=== PATIENT | male | born 1995 | race Caucasian/White ===

== ENCOUNTER → 2024-07-07 | Outpatient (CLI) | payer OTHER, SELFPAY | END | disposition home or self-care (01) | PROVIDERS: PCP Family Medicine; Referring Provider Physician Assistant Surgical; Visit Provider Physician Assistant Surgical | DX: S81.809A Unspecified open wound, unspecified lower leg, initial encounter (principal) | CPT/HCPCS: 87070; 87077; 87186; 87205 ==

== ENCOUNTER 2024-11-17 08:08 | Emergency (ER) | payer OTHER, SELFPAY ==
[2024-11-17 08:09] VITALS: BP 144/91; PULSE 91; RESP 16; TEMP 36.3; O2SAT 100; BMI 31.1
--- NOTE | 2024-11-17 08:15 | ED.RN ---
Pt has [facility] Workers Aid so per employer goes through that instead of Workers Comp.
--- NOTE | 2024-11-17 08:35 | EDS_ITS ---
HPI History of Present Illness Chief Complaint: Laceration Narrative Narrative: Chief complaint and HPI: Left hand injury. 29-year-old [place] male who is vaccinated presents for evaluation of left hand injury. Patient states that prior to arrival he accidentally cut his left fourth and fifth finger on a metal bur. He states that his fingers were not crushed but that he did hit them. He endorses pain in the fingers. Tetanus 6 years ago. He denies any numbness or tingling. Review of systems: See HPI Medications: As listed on the chart Allergies: As listed on the chart PFSH: Per chart Vital signs: As listed on the chart. Reviewed. Physical exam: Gen: A&O x3, NAD Head: Normocephalic, atraumatic Eyes: No sclera icterus, conjunctiva clear ENT: Moist mucous membranes CV: Regular rate Resp: Nonlabored respiration Musc: Patient has full range of motion of the hand and fingers except for the fifth finger which will not flex but extend. Patient has tenderness to palpation of the fourth and fifth finger. He has lacerations to the proximal fourth and fifth fingers on the volar aspect. Good capillary refill. No active bleeding. Sensation intact. Radial/ulnar pulse +2. Hand nontender to palpation. Skin: Warm, dry Neuro: Alert, oriented, grossly intact, sensation intact Psych: Cooperative, appropriate mood and affect [facility] Medical History No active medical problems Home Medications ?Medication ?Instructions ?Recorded ?Last Taken ?Type acetaminophen 300 mg-codeine 30 mg 1 - 2 tab PO Q6H [place] N Pain ##20 05/03/15 Unknown Rx tablet doxycycline monohydrate 100 mg 100 mg PO BID #20 caps 07/10/24 Unknown Rx capsule cephalexin 500 mg capsule 500 mg PO BID 7 days #14 cap s 11/17/24 Unknown Rx Allergy/AdvReac Type Severity Reaction Status Date / Time diphenhydramine (From Allergy Unknown PT UNSURE Verified 11/17/24 08:12 Benadryl) OF REACTION Surgical History History of knee surgery (~2015) Social History Smoking Status: Never smoker alcohol intake: never substance use type: does not use EXAM Physical Exam Const Vital Signs: 11/17/24 08:09 11/17/24 11:42 Temperature 97.4 F L 98.5 F Temperature Source Oral Pulse Rate 91 89 Respiratory Rate 16 16 Blood Pressure 144/91 H 135/78 H Blood Pressure Mean 108 97 Pulse Ox 100 100 Oxygen Delivery Method Room Air MDM MDM MDM Narrative Medical decision making narrative: 29-year-old [facility] male who is vaccinated presents for evaluation of left hand injury. Injury is located to the fourth and fifth fingers. He has lacerations on the volar aspect of these fingers. Both fingers are tender to palpation diffusely. No tenderness to the hand or wrist. He has full range of motion of all of his fingers as well as his thumb except for the fifth finger as it will not flex. Concern is for flexor tendon injury. Will wait to block the patient's finger with lidocaine before exploration for tendon injury. X-ray of the hand ordered as this is less radiographic views if ordered two finger x- rays. Tetanus updated. Lacerations will need repaired. X-ray without fracture or dislocation. The x-ray was personally reviewed and interpreted by me, ED physician. Given concern for flexor tendon injury, plastic surgery Dr. Salgado was consulted and patient was discussed. He will come evaluate the patient. Plan is for me to digital block the fingers, clean out the wound, and he will further evaluate before repair. Patient tolerated digital block well. Wounds copiously cleaned and irrigated. Patient did have pinprick sensation distally to the injury prior to the block. Despite numbness from the block. Patient can still not flex his finger. Patient was evaluated by Dr. Salgado. He agrees with tendon injury. Plan will be for OR next week. Recommendations were dorsal splint and Keflex for a week. Lacerations were repaired. Dorsal splint was applied. Patient tolerated this well. Patient given prescription for Keflex. Patient educated that splint cannot get wet and needs to remain on at all times. Sutures need to come out in 7 days. Return precautions explained. Patient discharged home. Laceration Repair Indication: Laceration Location: 2 cm laceration and 2.5 cm laceration to the left fourth and fifth fingers Consent: Risks, benefits, and alternatives discussed with patient and consent obtained Procedure: A time out was performed. The area was prepped and draped in the usual sterile fashion. Local anesthesia was achieved using 1% Lidocaine without epinephrine. The wound was copiously irrigated and cleaned. 8 sutures were placed in the 2.5 cm laceration and 5 stitches placed in the a 2 cm laceration using 4-0 Ethilon in an interrupted fashion. The estimated blood loss was minimal. A dressing was applied to the area with Bacitracin. The patient tolerated the procedure well without complications. Foreign Material: None Debridement: None Splint application Indication: Fifth finger flexor tendon tear Consent: Risks, benefits, and alternatives discussed with patient and consent obtained Procedure: A dorsal hand splint was applied to the left upper extremity to keep the fingers in flexion. Splint was made using sleeve, web roll, Ortho-Glass, and Alberto bandage. The extremity's neurovascular status was re-checked and was unchanged from the pre-procedure exam. The patient tolerated the procedure without complications. Impression: 1. Flexor tendon tear of left fifth finger 2. Laceration to the left fifth finger, repaired 3. Laceration to the left fourth finger, repaired 4. Dorsal splint placement Radiography Diagnostic Testing: Clinical Impression(s) from Imaging Studies Hand X-Ray 11/17/24 08:40 IMPRESSION: 1. Soft tissue swelling without acute fracture. 2. If symptoms persist, further evaluation with CT is recommended. Reading Location: [facility] Discharge Plan Triage Chief Complaint: Laceration ED Provider: Anirudh Tamayo Dx/Rx/DC Orders Clinical Impression: Laceration of finger of left hand, Injury of flexor tendon of left hand Instructions: ED Laceration, All Closures, ED Splints and Casts Prescriptions: New cephalexin 500 mg capsule 500 mg PO BID 7 Days Qty: 14 0RF No Action acetaminophen-codeine 1 TABLET tablet 1 - 2 tab PO Q6H PRN (Reason: Pain) Qty: 20 0RF Rx Instructions: causes drowsiness doxycycline monohydrate 100 mg capsule 100 mg PO BID Qty: 20 0RF Primary Care Provider: Care Physician,No Primary Referrals: Ajay Matamoros MD [Non-Staff] - James Salgado MD [Med Staff - Active Staff] - 3-5 Days Activity Restrictions/Additional Instructions: Follow-up with Dr. Salgado. Take all of your antibiotics. Sutures need to be removed in 7 days. Splint needs to remain on at all times. Cannot get wet. Take your antibiotics. Motrin and Tylenol as needed for pain. Print Language: Khmer Disposition Disposition: Home, Self Care Discharge Date/Time: 11/17/24 11:43
[2024-11-17] MEDS: Diphth,Pertuss(Acell),Tet Vac 0.5 ML Vial IM (08:36)
--- NOTE | 2024-11-17 08:40 | RAD_ITS ---
EXAM: XR Left Hand Complete, 3 or More Views CLINICAL INDICATION: INJURY TECHNIQUE: Frontal, lateral and oblique views of the left hand. COMPARISON: No relevant prior studies available. FINDINGS: BONES/JOINTS: See below. SOFT TISSUES: Soft tissue swelling without acute fracture. No radiopaque foreign body. RAD/Hand Min 3 Views IMPRESSION: 1. Soft tissue swelling without acute fracture. 2. If symptoms persist, further evaluation with CT is recommended. Reading [facility]
--- NOTE | 2024-11-17 10:07 | EX.PCM.CON.S ---
Assessment & Plan Assessment/Plan (1) Flexor tendon laceration, finger, open wound: QUALIFIERS: Encounter type: initial encounter Qualified Code(s): S56.129A - Laceration of flexor muscle, fascia and tendon of unspecified finger at forearm level, initial encounter; S61.209A - Unspecified open wound of unspecified finger without damage to nail, initial encounter PLAN: Flexor digitorum profundus complete laceration zone 2, left small finger at the level the PIP joint. I talked the patient extensively about the risks of surgery, including bleeding, infection, damage to surrounding structures, surgical site dehiscence and wound formation, failure of the repair, poor tendon gliding/poor flexion at the DIP joint, need for wound care, need for repeat operations, failure to obtain the desired result, DVT/PE, and the risks of anesthesia including , including stroke (from low blood pressure/ischemia or clot). The benefits and alternatives of this surgery were also discussed. All of their questions were answered, and they agreed to proceed with surgery. I talked to him extensively about the need for postoperative hand therapy and following the hand therapy protocol which means no heavy lifting for over 3 months. He was in agreement to proceed. I talked him about smoking cessation a lot and how this will affect wound healing and tendon gliding. He agreed to try to quit. Patient's wound was washed out and closed by the emergency department staff please see their separate operative note. Patient placed in a dorsal blocking splint with fingers in slight flexion. Follow-up for surgery early next week for repair of FDP to the small finger. HPI Consult Data Date of Consult: 11/17/24 HPI Narrative HPI Narrative: SHELDON MILLER is a 29 M who presents with left small and ring finger lacerations after he cut his volar fingers on a piece of metal while at work this morning. He reports sharp severe pain in the left upper extremity worsened by movements and improved with rest elevation. The emergency department staff consulted plastics out of concern for a flexor tendon injury to the small finger. Patient is a 10 cigarette/day smoker. He does not have a history of bleeding or clotting problems, or any family history of these issues. 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) Patient has never hurt this hand before or had any surgery on this hand His tetanus was updated today in the emergency department [facility] Medical History No active medical problems Home Medications ?Medication ?Instructions ?Recorded ?Last Taken ?Type acetaminophen 300 mg-codeine 30 mg 1 - 2 tab PO Q6H PRN Pain ##20 05/03/15 Unknown Rx tablet doxycycline monohydrate 100 mg 100 mg PO BID #20 caps 07/10/24 Unknown Rx capsule cephalexin 500 mg capsule 500 mg PO BID 7 days #14 caps 11/17/24 Unknown Rx Allergy/AdvReac Type Severity Reaction Status Date / Time diphenhydramine (From Allergy Unknown PT UNSURE Verified 11/17/24 08:12 Benadryl) OF REACTION Surgical History History of knee surgery (~2015) Social History Smoking Status: Never smoker alcohol intake: never substance use type: does not use Physical Exam Narrative Left upper Extremity Inspection: Oblique lacerations to the volar surface of the ring and small fingers at the level of the proximal interphalangeal (PIP) joints. Palpation: Deferred Motor: Able to bend and extend all MP, PIP, and DIP joints except he is unable to bend the distal interphalangeal joint (DIP) of the left small finger consistent with an flexor digitorum profundus (FDP) injury. FDS to the small finger is intact. Sensory: Intact to light touch on the radial and ulnar borders. He has intact pinprick sensation distal to the zone of injury on the radial and ulnar borders of the ring and small fingers Vascular: Finger tips are warm and well perfused with <2 second capillary refill. Doppler ultrasound was used to assess the perfusion of the digits distal to the zone of injury and he had triphasic signal on both the ring and small finger. Imaging Radiology Impression Hand X-Ray 11/17/24 08:40 IMPRESSION: 1. Soft tissue swelling without acute fracture. 2. If symptoms persist, further evaluation with CT is recommended. Reading [facility] Charges/Coding Visit Charges Office Visits / Consults: [id number] OV L4 New 45min
[2024-11-17] MEDS: Lidocaine 1% (20 ml mdv) 20 ML Vial INFILT (11:41)
[2024-11-17 11:42] VITALS: BP 135/78; PULSE 89; RESP 16; TEMP 36.9; O2SAT 100
== END 2024-11-17 11:43 | disposition home or self-care (01) ==
PROVIDERS: Emergency Provider Surgery; Visit Provider Surgery
DX: S61.215A Laceration without foreign body of left ring finger without damage to nail, initial encounter (principal); S66.117A Strain of flexor muscle, fascia and tendon of left little finger at wrist and hand level, initial encounter; S61.217A Laceration without foreign body of left little finger without damage to nail, initial encounter; W31.89XA Contact with other specified machinery, initial encounter; Z23 Encounter for immunization; F17.210 Nicotine dependence, cigarettes, uncomplicated
CPT/HCPCS: 12002; 29125; 73130; 90715; 99283

== ENCOUNTER 2024-11-21 06:02 | Day surgery (SDC) | payer OTHER, SELFPAY ==
[2024-11-21] VITALS (9 sets, daily range): BP systolic 116–127; BP diastolic 68–82; PULSE 90–104; RESP 14–18; TEMP 36.1–36.9; O2SAT 94–98; BMI 32.1
[2024-11-21] MEDS: 0.9% Normal Saline (1000mL) 1,000 ML 15 ML IV (06:31)
--- NOTE | 2024-11-21 06:54 | PRE.ANES_ITS ---
ASA Classification* ASA Classification ASA Classification: 2 Assessment & Plan Anesthesia* Anesthesia Assessment Anesthesia Assessment: Discussed sedation and/or anesthesia options, risks, benefits, and alternatives with patient/parents/legal guardian/POA. Questions invited. The patient/parents/legal guardian/POA seems to understand and agrees to proceed with anesthesia plan. Reviewed the physical assessment, medical history, allergy history and patient home medications list prior to surgery/procedure/anesthetic and documented any changes. Performed airway and anesthesia risk assessments. Anesthesia Type Anesthesia Type: General (LMA -- seems like it'll be a few hours long case) History Source History Obtained from:: Patient and Chart Anesthesia Focused Assessment* Temperature: 98.4 F Pulse Rate: 96 Blood Pressure: 127/82 Respiratory Rate: 14 Pulse Ox: 94 Oxygen Delivery Method: Room Air Airway Assessment Mouth opens: >3 cm Mallampati Score: II Teeth Condition: Dentures, Full, Lower and Upper Neck Range of motion (ROM): Full ROM Focused Labs Anesthesia Preop lab: CBC CHEMISTRY COAG Pre-Assessment Diagnosis/Proposed Procedure Planned Operative Procedure(s): LEFT HAND SMALL FINGER LACERATION FLEXOR TENDON REPAIR Anesthesia History Anesthesia History - research neuropsychologist: Anesthesia History - research neuropsychologist Hx Hospitalization No 11/20/24 09:57 Any Problems With Anesthesia No 11/20/24 09:57 Cholinesterase deficiency No 11/20/24 09:57 You/Your Family Experience No 11/20/24 09:57 fever (hyperthermia) with Relationship Recent Exposure to Contagious No 11/21/24 06:25 Disease Does patient have nerve No 11/20/24 09:57 stimulator Patient instructed to have device shut off --Does patient have Pacemaker or ICD? When Was Last Pacemaker Check QUESTION #4 FULL TEXT: You/Your Family Experience fever (hyperthermia) with Anesthesia Last Oral Intake Last Oral intake: Last Oral Intake NPO since 00:00 11/21/24 06:27 Meds taken in AM with sips of No 11/21/24 06:27 water? Meds patient instructed to take am of surgery PONV PONV - research neuropsychologist: PONV - research neuropsychologist Female No 11/20/24 09:57 HX of Motion Sickness No 11/20/24 09:57 HX of N/V After Surgery No 11/20/24 09:57 Non-Smoker No 11/20/24 09:57 Duration of Surgery greater No 11/20/24 09:57 than 60 minutes Number of Risk Factors PONV Score Height & Weight Height & Weight: Anesthesia: Height & Weight Height 5 ft 8 in 11/21/24 06:27 Weight: 95.9 kg 11/21/24 06:27 Body Mass Index (BMI) 32.1 11/21/24 06:27 Respiratory Assessment Respiratory Assessment - research neuropsychologist: Respiratory Tract Infection Hx - research neuropsychologist Hx Respiratory Tract Infection No 11/20/24 09:57 STOP Sleep Apnea STOP Sleep Apnea - research neuropsychologist: STOP Sleep Apnea - research neuropsychologist Hx Hypertension No 11/20/24 09:57 Hx Sleep Apnea No 11/20/24 09:57 CPAP BIPAP Do you snore loudly (louder Yes 11/20/24 09:57 than talking or can be heard Do you often feel tired/ No 11/20/24 09:57 fatigued/ sleepy during daytime? Has anyone observed you stop No 11/20/24 09:57 breathing during sleep? STOP Results Negative 11/20/24 09:57 QUESTION #5 FULL TEXT : Do you snore loudly (louder than talking or can be heard through closed doors)? 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 Specify any problems Hx of Preganancy in last 3 N/A 11/20/24 09:57 Months Nurse Filling Out Transfusion JZOLLINGE 11/20/24 09:57 & Questions: Date: 11/20/24 11/20/24 09:57 Time: 10:03 11/20/24 09:57 Patient unable to answer at this time (ie. confused, unrespo /Reproduction History /Reproductive History - research neuropsychologist: /Reproductive Hx- research neuropsychologist Hx Now No 11/20/24 09:57 Gestational Age (in weeks): EDC: Hx Hx Para Hx Section SAB No 11/20/24 09:57 Active Medications Active Medications: Current Medications Generic Name Dose Route Start Last Admin Trade Name Freq PRN Reason Stop Dose Admin Cefazolin Sodium 2 gm/ N/A 20 mls @ 400 mls/hr 11/21/24 07:30 IV 11/21/24 07:32 PREOP ONE Sodium Chloride 1,000 mls @ 15 mls/hr 11/21/24 06:10 11/21/24 06:31 IV 11/26/24 19:29 15 mls/hr .Q48H KOBI Administration PFSH Medical History (Updated 11/20/24 @ 10:10 by Jenn Munoz) Wears dentures Smoker No active medical problems Home Medications ?Medication ?Instructions ?Recorded ?Last Taken ?Type cephalexin 500 mg capsule 500 mg PO BID 7 days #14 cap s 11/17/24 11/20/24 Rx Allergy/AdvReac Type Severity Reaction Status Date / Time diphenhydramine (From Allergy Unknown PT UNSURE Verified 11/20/24 09:53 Benadryl) OF REACTION Surgical History (Updated 11/20/24 @ 10:10 by Jenn Munoz) Hx of adenoidectomy Hx of tonsillectomy History of knee surgery (~2015) Social History Smoking Status: Current every day smoker tobacco type: cigarettes alcohol intake: never substance use type: does not use Review of Systems (Anesthesia) ROS Narrative System reviewed and no additional complaints, except as documented. Physical Exam Const alert, oriented x3 and average body habitus Resp normal respiratory effort, normal air movement and clear to auscultation b ilaterally Cardio regular rate, regular rhythm, no murmurs and diaphoretic
--- NOTE | 2024-11-21 07:27 | PCM.HP.STD ---
HPI - General HPI Narrative SHELDON MILLER is a 29 M who presents with left small and ring finger lacerations after he cut his volar fingers on a piece of metal while at work this morning. He reports sharp severe pain in the left upper extremity worsened by movements and improved with rest elevation. The emergency department staff consulted plastics out of concern for a flexor tendon injury to the small finger. Patient is a 10 cigarette/day smoker. He does not have a history of bleeding or clotting problems, or any family history of these issues. 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 We discussed risks and benefits of today's surgery and they would like to proceed. NO CHANGE in health history since last seen and evaluated EXCEPT HE'S REPORTING SOME NUMBNESS ON THE ULNAR SIDE OF THE SMALL FINGER DISTAL TO THE ZONE OF INJURY . Ready to proceed with surgery. [facility] Medical History (Updated 11/21/24 @ 07:[address] James Salgado MD) Wears dentures Smoker No active medical problems Home Medications ?Medication ?Instructions ?Recorded ?Last Taken ?Type cephalexin 500 mg capsule 500 mg PO BID 7 days #14 caps 11/17/24 11/20/24 Rx Allergy/AdvReac Type Severity Reaction Status Date / Time diphenhydramine (From Allergy Unknown PT UNSURE Verified 11/20/24 09:53 Benadryl) OF REACTION Surgical History (Updated 11/20/24 @ 10:10 by Jenn Munoz) Hx of adenoidectomy Hx of tonsillectomy History of knee surgery (~2015) Social History Smoking Status: Current every day smoker tobacco type: cigarettes alcohol intake: never substance use type: does not use Vital Signs Vital Signs Vital Signs: 11/21/24 06:25 11/21/24 06:27 11/21/24 07:00 Temperature 98.4 F 98.4 F Temperature Source Temporal Pulse Rate 96 96 Respiratory Rate 14 14 Respiratory Pattern Normal Blood Pressure 127/82 H 127/82 H Blood Pressure Mean 97 Blood Pressure Source Monitor Blood Pressure Position Semi-Fowlers Blood Pressure Location Right Arm Pulse Ox 94 94 Oxygen Delivery Method Room Air Room Air Weight Weight: 211 lb 6.773 oz Body Mass Index (BMI) 32.1 Physical Exam Narrative Left upper Extremity Inspection: Oblique lacerations to the volar surface of the ring and small fingers at the level of the proximal interphalangeal (PIP) joints. Palpation: Deferred Motor: Able to bend and extend all MP, PIP, and DIP joints except he is unable to bend the distal interphalangeal joint (DIP) of the left small finger consistent with an flexor digitorum profundus (FDP) injury. FDS to the small finger is intact. Sensory: Intact to light touch on the radial and ulnar borders except he has no 2-point discrimination on the ulnar border of the small finger distal to the laceration, and 2 mm 2-point on the contralateral finger ulnar side and on the ipsilateral radial side. Vascular: Finger tips are warm and well perfused with <2 second capillary refill. Doppler ultrasound was used to assess the perfusion of the digits distal to the zone of injury and he had triphasic signal on both the ring and small finger. Assessment & Plan Assessment/Plan (1) Flexor tendon laceration, finger, open wound: QUALIFIERS: Encounter type: initial encounter Qualified Code(s): S56.129A - Laceration of flexor muscle, fascia and tendon of unspecified finger at forearm level, initial encounter; S61.209A - Unspecified open wound of unspecified finger without damage to nail, initial encounter PLAN: Flexor digitorum profundus complete laceration zone 2, left small finger at the level the PIP joint. I talked the patient extensively about the risks of surgery, including bleeding, infection, damage to surrounding structures, surgical site dehiscence and wound formation, failure of the repair, poor tendon gliding/poor flexion at the DIP joint, need for wound care, need for repeat operations, failure to obtain the desired result, DVT/PE, and the risks of anesthesia including , including stroke (from low blood pressure/ischemia or clot). The benefits and alternatives of this surgery were also discussed. All of their questions were answered, and they agreed to proceed with surgery. I talked to him extensively about the need for postoperative hand therapy and following the hand therapy protocol which means no heavy lifting for over 3 months. He was in agreement to proceed. I talked him about smoking cessation a lot and how this will affect wound healing and tendon gliding. He agreed to try to quit. Patient's wound was washed out and closed by the emergency department staff please see their separate operative note. Patient placed in a dorsal blocking splint with fingers in slight flexion. Follow-up for surgery early next week for repair of FDP to the small finger. INTERVAL H&P PLAN, DATE OF SURGERY: We will proceed with surgery today. I re-iterated the above noted risks, benefits, and alternatives to today's procedure. I also talked to him about digital nerve repair and neuromas, nerve pain. He would like to proceed with possible digital nerve repair as well. (2) Digital nerve laceration, finger:
[2024-11-21] MEDS: Cefazolin 2 GM in Syringe IV (07:45)
[2024-11-21] MEDS: Bupivacaine 0.25% 30 ML Vial (09:57)
--- NOTE | 2024-11-21 10:20 | PCM.POST.ANE ---
Anesthesia: Postop Eval I Current Vital Signs Temperature: 97.4 F Pulse Rate: 93 Blood Pressure: 124/73 Respiratory Rate: 14 Pulse Ox: 98 Oxygen Delivery Method: Simple Mask Assessment Airway patent: Yes Spontaneous unlabored respirations: Yes nausea: No Vomiting: No Anesthesia Complication: No Fluid Hydration Crystalloid volume administer (ml): 1,500 Total IV fluid infused: 1,500 Progress Note Anesthesia document: Postop Eval 1 completed: Yes
--- NOTE | 2024-11-21 11:10 | POSTOPAN2_ITS ---
Anesthesia Postop Eval I Sum Postop Eval Completion status Anesthesia document: Postop Eval 1 completed: Yes Anesthesia Postop Eval I Summary Anesthesia Postop Eval I Summary: Anesthesia Postop Eval I: Assessment Summary Airway patent Yes 11/21/24 10:21 SOFT DRINK POWDER [email or web address] Spontaneous unlabored Yes 11/21/24 10:21 SOFT DRINK POWDER [email or web address] respirations Mental status nausea No 11/21/24 10:21 SOFT DRINK POWDER [email or web address].HBARR Vomiting No 11/21/24 10:21 SOFT DRINK POWDER [email or web address] Anesthesia Postop Eval I: Fluid Summary Crystalloid volume administer 1,500 11/21/24 10:21 SOFT DRINK POWDER [email or web address] (ml) Colloids volume administered ( ml) Blood Product volume administered (ml) Total IV fluid infused 1,500 11/21/24 10:21 SOFT DRINK POWDER [email or web address].[email or web address] Anesthesia Postop Eval I: Summary Notes Anesthesia Complication No 11/21/24 10:21 SOFT DRINK POWDER [email or web address].[email or web address] Anesthesia Complication Comment: Post-operative progress note Anesthesia: Postop Eval II Evaluation Mental status: Awake Pain Level: 0 nausea: No Vomiting: No Complications Anesthesia Complication: No
--- NOTE | 2024-11-21 11:10 | PCM.POSTANE2 ---
Anesthesia Postop Eval I Sum Postop Eval Completion status Anesthesia document: Postop Eval 1 completed: Yes Anesthesia Postop Eval I Summary Anesthesia Postop Eval I Summary: Anesthesia Postop Eval I: Assessment Summary Airway patent Yes 11/21/24 10:21 [email or web address] [email or web address] Spontaneous unlabored Yes 11/21/24 10:21 ISSUING [email or web address].[email or web address] respirations Mental status nausea No 11/21/24 10:21 ISSUING [email or web address] Vomiting No 11/21/24 10:21 ISSUING [email or web address] Anesthesia Postop Eval I: Fluid Summary Crystalloid volume administer 1,500 11/21/24 10:21 ISSUING [email or web address] (ml) Colloids volume administered ( ml) Blood Product volume administered (ml) Total IV fluid infused 1,500 11/21/24 10:21 ISSUING [email or web address] Anesthesia Postop Eval I: Summary Notes Anesthesia Complication No 11/21/24 10:21 ISSUING [email or web address].[email or web address] Anesthesia Complication Comment: Post-operative progress note Anesthesia: Postop Eval II Evaluation Mental status: Awake Pain Level: 0 nausea: No Vomiting: No Complications Anesthesia Complication: No
--- NOTE | 2024-11-21 21:21 | PCM.OPRPT ---
Operative Report (Standard) Operative Information Date of Procedure: 11/21/24 Pre-Operative Diagnosis: 1) Left small finger ulnar digital nerve laceration 2) Left small finger zone 2 flexor digitorum profundus tendon (FDP) laceration Post-Operative Diagnosis: Same Surgery/Procedure Performed: 1) Left small finger ulnar digital nerve laceration repair (CPT 09088) 2) Left small finger zone 2 flexor digitorum profundus tendon (FDP) laceration repair (CPT 18486) scratch brusher: Yes Wholesale Account Executive: Indigo Gross Tasks completed by workforce development assistant: Retracting Type of Anesthesia: General/Supplemental (6 cc of 0.25% Marcaine for digital block at the completion of the case ) RN Documented Start/Stop Times: Operation Date: 11/21/24 07:30 Case Time Into Pre-Op 11/21/24 06:09 Out of Pre-Op 11/21/24 07:32 Anesthesia Start 11/21/24 07:37 Into Room 11/21/24 07:37 Procedure Start 11/21/24 08:03 Procedure End 11/21/24 10:04 Anesthesia End 11/21/24 10:14 Out of Room 11/21/24 10:14 Into Recovery 11/21/24 10:17 Into Phase II Recovery 11/21/24 10:49 Out of Recovery 11/21/24 10:49 Out of Phase II 11/21/24 11:38 Procedure Start Time: 08:03 Procedure Stop Time: 10:04 Select all DRAINS/GRAFTS/IMPLANTS that apply: Graft (Nerve protector ) Graft details: Axogaurd nerve connector, Ref [id number], Lot [id number], D 3mm, L 15mm, Exp 10 February 2026 Estimated Blood Loss: 10 cc Specimen collected: No Description of surgery: Indications: Jose Alberto Watson is a 29-year-old male who cut his hand on metal while at work on , 16 November 2024. Presents today for repair of flexor digitorum profundus to the small finger as well as the ulnar digital nerve of the small finger. I talked him about the risks, benefits, and alternatives to surgery and he elected to proceed. Procedure details: Patient was correctly identified in preoperative holding and taken back to the operating room he was administered general anesthesia. He was prepped and draped in sterile fashion and a proper timeout was performed. An Esmarch was used with a tourniquet on the left arm and it was inflated to 250 mmHg. The sutures were removed from the emergency department closure of the small finger wound. We began the procedure with careful dissection with 15 blade scalpel, incorporating the transverse laceration into a distal radial mid axial incision and a proximal ulnar mid axial incision. Care was taken to preserve the unaffected radial digital neurovascular bundle. We were able to identify the cut ends of the ulnar digital nerve. We were also able to identify that the A3 jericho had been lacerated and the ulnar slip of the FDS was cut. The radial slip of FDS was intact. There was no identifiable proximal stump of the FDP, but the distal stump of the FDP was identified by flexing the finger at the DIP joint. Further proximal dissection on top of the A2 jericho did not demonstrate the proximal stump of the FDP. Therefore the mid axial incision over the ulnar side of the small finger P1 was converted into a Natasha incision over the A1 jericho region. Dissection was carefully taken down to the tendons with care to preserve the digital nerve and artery. The proximal stump of the FDP was identified and threaded back through the jericho system proximally at this level to the level where the FDP had been transected. A Trenton needle was used to keep it in position. The A4 jericho was vented slightly in the proximal portion so as to enable the tendon repair. The FDP cut ends were then repaired with a 4-0 Arthrex looped FiberWire suture for a Tsuge-Gregory style repair. A 5-0 Prolene epitendinous suture was then placed. We were happy with the cascade of the fingers and there was no tendon gapping. Attention was then turned to the digital nerve repair. The microscope was brought into the room and focused on the digital nerves. With assistance of the microscope for the repair, the cut and frayed ends of the nerve were freshened slightly with a straight micro scissors. The epineurium between the 2 nerve ends was then repaired without any tension using 3 interrupted 9-0 nylon sutures. The repair was then reinforced with a nerve connector nerve wrap which was sutured into place with a 9-0 nylon suture. It was trimmed to fit around the nerve and further reinforced with small microvascular clips. The wound was then irrigated with copious amounts of normal saline and the tourniquet was let down. Hemostasis obtained with bipolar electrocautery. The finger was warm and well-perfused distal to the zone of injury. Closure was then performed with interrupted 3-0 nylon suture. The patient tolerated the procedure well. He was placed in a dorsal blocking plaster splint with the fingers in slight flexion. He was awakened and taken to the PACU in stable condition. Postoperative plan: I discussed with him extensively smoking cessation and the effects of smoking on wound healing and tendon gliding. I talked to him about the need for hand therapy. He will keep his splint in place and dry until his appointment with our hand therapist in 3 days on Wednesday, 24 November 2024, at which time he will begin the modified [facility] hand therapy protocol. Surgical Findings: Transected ulnar digital nerve to the small finger at about the level of the PIP joint Intact radial slip of flexor digitorum superficialis (FDS), transected radial slip (was not repaired) Complications Complications: No Admit VTE Documentation VTE Mechan Device Prophylaxis: SCD's
== END 2024-11-21 11:39 | disposition home or self-care (01) ==
LOC: SDC 06:04 → AC 06:05
PROVIDERS: Referring Provider Surgery Plastic and Reconstructive Surgery; Visit Provider Surgery Plastic and Reconstructive Surgery
PROC: (CPT 26370; principal; 2024-11-21 07:15)
DX: S66.125A Laceration of flexor muscle, fascia and tendon of left ring finger at wrist and hand level, initial encounter (principal); S64.495A Injury of digital nerve of left ring finger, initial encounter; W26.8XXA Contact with other sharp object(s), not elsewhere classified, initial encounter; Y99.0 Civilian activity done for income or pay; F17.210 Nicotine dependence, cigarettes, uncomplicated
CPT/HCPCS: 26370; 64831; C1763; J2405

== ENCOUNTER 2025-01-23 15:00 | Outpatient (RCR) | payer SELFPAY, OTHER ==
--- NOTE | 2024-11-24 09:58 | HP.OTEVAL ---
Patient's Visit Information Visit Information Visit Information: SHELDON MILLER is a 29 year old M, referred to Occupational Therapy by Dr. James Salgado MD, with a diagnosis of Left SF FDP laceration, Ulnar digital nerve laceration. Date of Evaluation: 11/24/24 Occupational Therapist: Ibis Truong, SOLOMON/Jeff, CHT Subjective Subjective: This 29 year old male was seen for OT eval with dx of left SF laceration. pt states while at work he cut his finger on metal ( November 16 2024) underwent sx 11/21/24 Pt suffered from a zone 2 flexor tendon laceration of left SF. undergoing FDP repair and left Ulnar digital nerve repair. pt is right handed- has and small children- can help as needed. pt arrives to day with surgical splint on in need of custom orthosis.. ROM ROM Comments: pt demo with left wrist ROM WNL- therapist left thumb and IF out of Dorsal blocking orthosis- SF demo Passive MP of 0/60* PIP -5/40* DIP 0/15* Edema Other: slight in LF /temp. consistent with other fingers on left Quick DASH-Disab of Arm,Shoulder& Hand Quick DASH Score: 71.6650 Goals Goal:100% adherence to protocol: Yes Comment: zone 2 FDP repair guidelines Goal:Daily scar massage when approriate: Yes Goal:ROM equal to unaffected hand: Yes Goal:Stock Tracer/Pinch strength at least 75% of unaffected hand: Yes Comment: will not initiate until week 6 Goal:No pain with affected hand use: Yes Goal:Full use of affected hand in daily activities including work: Yes Goal:Decrease scar hypersensitivity: Yes Other Goal: orthosis use: pt will demo understanding of using orthosis at all times as a protector to prevent wrist and digit ext. to allow the tendon to heal by end of 1st session. Rehabilitation General Assessment: Pt arrives 3 days s/p for a FDP repair and ulnar digital nerve repair. Pt demo need for skilled OT services 2xwee for 6-8 weeks to return pt to his PLOF. Today therapist removed pts dressing- ( incision looked great dry and min signs of seeping) slight swelling- therapist did take some time and washed pts hand with warm soapy water. pt did get little nauseated initially) therapist was able to proceed with akua. custom dorsal blocking orthosis placing left wrist is slight ext 30* - MPs at 50* and PIPs at 0. therapist reviewed with pt passive ROM of MP, PIP and DIP with active ext within the splint. (pt was given handouts) instructed to perform every 2 hours 10-15 x without pain. pt demo understanding and agree to POC. Rehabilitation Potential: Good Anticipated Interventions Anticipated Interventions: Early Active Motion, A/AAROM/PROM, Strengthening, Edema Control, Scar Care, Triggerpoint Release, Desensitization, Sensory Retraining, Wound Care, Modalities, Orthoses, Joint Protection/Energy Conservation, Ergonomic Education, Fine Motor Coord/Favian, ADL Training, Education re assistive Equipment, Education re Diagnosis and Home Program Visit Plan Frequency: 2-3x /Week Duration: 2-4 Months TEXT: Thank you for the opportunity to evaluate your patient. For Medicare and Medicare HMO plans, please review the plan of care and approve it. It will need to be FAXED BACK to us at [phone] for Medicare purposes. Please let me know if there are questions or concerns regarding this plan of care. Physician Signature: Date:
--- NOTE | 2025-01-19 09:21 | HP.OTREVAL ---
Re-Evaluation Intro: Dr. James Salgado MD, It has been my pleasure to treat SHELDON MILLER over the last 16 visits for Left SF FDP laceration, Ulnar digital nerve laceration. Please see the progress note below for an update on the occupational therapy plan of care! Subjective Subjective: pt states he has been passively working his finger and has noticed improved motion- pt states hand does not limit him at this time. Objective Objective/Function: left PIP -25/70 DIP still not moving well -5/20 - still feel FDP movement. and no change in the ROM following services pt scar adhesions have limited progress at this time pt to cont with functional use of left UE as emre. as strengthening will and use will improve motion Plan Plan Visits in this POC: pt to return to Dr. Plan: ROM Place and hold PROM scar Goals Goals Patient Goals: Regain Mobility, Use Hand/Wrist/Arm Normally Again and Resume Former Household Responsibilities (Cooking,Cleaning,Yard, etc.) Goal:100% adherence to protocol: Yes Goal:Daily scar massage when approriate: Yes Goal:ROM equal to unaffected hand: Yes Goal:Manager Mental Health/Pinch strength at least 75% of unaffected hand: Yes Goal:No pain with affected hand use: Yes Goal:Full use of affected hand in daily activities including work: Yes Goal:Decrease scar hypersensitivity: Yes Other Goal: orthosis use: pt will demo understanding of using orthosis at all times as a protector to prevent wrist and digit ext. to allow the tendon to heal by end of 1st session. Anticipated Interventions Anticipated Interventions Anticipated Interventions: Early Active Motion, A/AAROM/PROM, Strengthening, Edema Control, Scar Care, Triggerpoint Release, Desensitization, Sensory Retraining, Wound Care, Modalities, Orthoses, Joint Protection/Energy Conservation, Ergonomic Education, Fine Motor Coord/Favian, ADL Training, Education re assistive Equipment, Education re Diagnosis and Home Program Re-Evaluation Ending Re-evaluation ending: Please do not hesitate to contact me at [phone] by phone or if you have questions or concerns regarding this new plan of care! Sincerely, Ibis Truong, ZIYADR/L, CHT
--- NOTE | 2025-01-23 15:13 | HP.OTDCSUM ---
Discharge Summary D/C Summary: It has been my pleasure to treat SHELDON MILLER under orders from Dr. James Salgado MD, for the diagnosis of Left SF FDP laceration, Ulnar digital nerve laceration for a total of 17 visit(s). Please see the following information for a summary of their discharge status. Overall Improvement % Improvement: 20 Objective Objective/Function: left PIP -25/70 DIP still not moving well -5/20 - still feel FDP movement. left hide salter strength 60# increase from 40# and no change in the ROM following services pt scar adhesions have limited progress at this time pt to cont with functional use of left UE as emre. as strengthening will and use will improve motion. pt released by. Goals Patient Goals: Regain Mobility, Use Hand/Wrist/Arm Normally Again and Resume Former Household Responsibilities (Cooking,Cleaning,Yard, etc.) Goal:100% adherence to protocol: Yes Goal:Daily scar massage when approriate: Yes Goal:ROM equal to unaffected hand: Yes Goal:Warehouse Operator/Pinch strength at least 75% of unaffected hand: Yes Goal:No pain with affected hand use: Yes Goal:Full use of affected hand in daily activities including work: Yes Goal:Decrease scar hypersensitivity: Yes Other Goal: orthosis use: pt will demo understanding of using orthosis at all times as a protector to prevent wrist and digit ext. to allow the tendon to heal by end of 1st session. Plan Plan: ROM Place and hold PROM scar D/C Information Discharge Comments: pt d/c with HEP and to return to his PLOF. d/c sentence: If there are questions or concerns regarding this patient's occupational therapy, please fell free to call me at [phone]. Thank you for the referral of this patient. Sincerely, Ibis Truong, OTR/L, CHT
== END 2025-01-23 19:00 | disposition home or self-care (01) ==
LOC: OT 15:00
PROVIDERS: Referring Provider Surgery Plastic and Reconstructive Surgery; Visit Provider Surgery Plastic and Reconstructive Surgery
DX: S56.129D Laceration of flexor muscle, fascia and tendon of unspecified finger at forearm level, subsequent encounter (principal); S61.209D Unspecified open wound of unspecified finger without damage to nail, subsequent encounter
CPT/HCPCS: 97035; 97110; 97140; 97166; 97530; 97760